=== PATIENT | female | born 1975 | race Caucasian/White ===

== ENCOUNTER → 2017-07-27 | Outpatient (CLI) | payer OTHER ==
[2016-05-31 13:38] VITALS: BMI 26.1
[~2017-07-27] MED LIST: BENZCLINPT TOP; BIOT1CAP PO; CHOL500045 PO; CINN500C12 PO; CYAN250013 PO; HYO125 SL; IBUP800T37 PO; LEVO75TA73 PO; LINA145C PO; NO CURRENT MEDS; OMEP40CA48 PO; OXYC-373 PO; PRO25 PO
--- NOTE | 2017-07-28 08:22 | RADIOLOGY IMAGING REPORT ---
FACILITY: [facility] PATIENT NAME: FLAVIO PHILLIPS : [id number] MR: [id number] V: [id number] EXAM DATE: [id number] ORDERING PHYSICIAN: MERLINE BURKETT TECHNOLOGIST: Kasandra Ventura PROCEDURE:LEFT DIGITAL DIAGNOSTIC MAMMOGRAM WITH 3D BREAST TOMOSYNTHESIS. COMPARISON:Prior mammograms dated 07/02/17. INDICATIONS:FURTHER EVALIUATION FINDINGS: The patient returns for a medial lateral view of the left breast and a spot compression view in the left MLO projection. The focal area of increased density inferior portion of the left breast on the recent MLO view appeared compressible and apparently represented summation shadow. There was no demonstration of malignant appearing mass or calcification in the left breast. DIAGNOSTIC CATEGORY 2--BENIGN FINDING. RECOMMENDATIONS: ROUTINE MAMMOGRAM AND CLINICAL EVALUATION. IMPRESSION: BI-RADS 2: No significant abnormality of the left breast is seen. Dictated by: Lori Ponce M.D. on 07/27/2017 at 9:47 Transcribed by: MARIA ALEJANDRA on 07/27/2017 at 18:11 Approved by: Lori Ponce M.D. on 07/28/2017 at 8:21 [facility]
== END ==
LOC: MAMO 07-24 03:51
PROVIDERS: ATTEND Family Medicine
DX: R92.2 Inconclusive mammogram (principal)
CPT/HCPCS: 77065

== ENCOUNTER → 2018-09-17 | Outpatient (CLI) | payer OTHER ==
[2016-05-31 13:38] VITALS: BMI 26.1
--- NOTE | 2018-09-20 10:48 | RADIOLOGY IMAGING REPORT ---
FACILITY: [facility] PATIENT NAME: FLAVIO PHILLIPS : [id number] MR: [id number] V: [id number] EXAM DATE: ORDERING PHYSICIAN: MERLINE BURKETT TECHNOLOGIST: Kasandra Ventura PROCEDURE:BILATERAL DIGITAL SCREENING MAMMOGRAM WITH CAD ASSISTED INTERPRETATION & 3D TOMOSYNTHESIS COMPARISON:Prior mammogram 07/02/17. INDICATIONS:SCREENING FINDINGS: The breasts are heterogeneously dense. Mild appearing asymmetries are scattered bilaterally, unchanged. DIAGNOSTIC CATEGORY 1--NEGATIVE. RECOMMENDATIONS: ROUTINE MAMMOGRAM AND CLINICAL EVALUATION. IMPRESSION: BIRADS 1: Negative. Dictated by: Warner West M.D. on 09/17/2018 at 16:47 Transcribed by: [email or web address] on 09/20/2018 at 8:22 Approved by: Lori Ponce M.D. on 09/20/2018 at 10:47 [facility]
== END ==
LOC: MAMO 02:42
PROVIDERS: ATTEND Family Medicine
DX: Z12.31 Encounter for screening mammogram for malignant neoplasm of breast (principal)
CPT/HCPCS: 77063; 77067